=== PATIENT | male | born 1990 | race Hispanic/Latino ===

== ENCOUNTER 2019-09-09 18:48 | Emergency (ER) | payer SELFPAY | END 2019-09-09 19:51 | disposition home or self-care (01) | LOC: ERS 18:48 | DX: J11.1 Influenza due to unidentified influenza virus with other respiratory manifestations (principal) | CPT/HCPCS: 99283 ==

== ENCOUNTER 2022-08-15 05:35 | Emergency (ER) | payer SELFPAY ==
[2022-08-15] MEDS ORDERED: Ondansetron PF 4 MG/2 ML Vial ONE (06:08)
[2022-08-15 06:25] LABS: #Basophils 0.1 thou/uL (0.0-0.2); #Eosinphils 0.2 thou/uL (0.0-0.7); #Lymphocytes 1.4 thou/uL (1.20-3.40); #Monocytes 0.4 thou/uL (0.11-0.59); #Neutrophils 6.6 thou/uL (1.40-6.50); %Basophils 0.9 % (0.0-1.0); %Eosinophils 1.8 % (0.0-10.0); %Lymphocytes 16.6 % (21.0-51.0); %Monocytes 4.2 % (0.0-10.0); %Neutrophils 76.5 % (42.0-75.0); Hemoglobin 15.5 g/dL (14.0-18.0); Mean Corpuscular HGB CONC 34.9 g/dL (32.0-36.0); Mean Corpuscular Volume 85.9 fl (78.0-98.0); Mean Platelet Volume 6.6 fL (7.4-10.4); Platelet Count 283 thou/uL (130-400); Red Blood Cell (RBC) Count 5.17 mill/uL (4.70-6.10); White Blood Cell (WBC) Count 8.6 thou/uL (4.8-10.8)
[2022-08-15] MEDS ORDERED: Mag-Al 1200 mg/1200 mg/30 ML UDCUP ONE (06:32)
[2022-08-15 07:17] LABS: ALT (SGPT) 27 U/L (8-55); AST (SGOT) 19 U/L (5-34); Albumin 4.6 g/dL (3.5-5.0); Alkaline Phosphatase 62 U/L (40-110); Anion Gap 14 mmol/L (10-20); BUN (Urea Nitrogen) 10 mg/dL (8.9-20.6); Bilirubin, Total 0.7 mg/dL (0.2-1.2); Calc. Creatinine Clearance 0 mL/min (70-130); Calcium 9.4 mg/dL (7.8-10.44); Carbon Dioxide 22 mmol/L (22-29); Chloride 106 mmol/L (98-107); Estimated GFR 109; Glucose 104 mg/dL (70-105); Lipase 51 U/L (8-78); Potassium 4.2 mmol/L (3.5-5.1); Protein, Total 7.6 g/dL (6.0-8.3); Sodium 138 mmol/L (136-145)
== END 2022-08-15 08:27 | disposition home or self-care (01) ==
LOC: ERS 05:35
DX: K80.20 Calculus of gallbladder without cholecystitis without obstruction (principal)
CPT/HCPCS: 76705; 80053; 83690; 85025; 96374; J2405

== ENCOUNTER 2025-07-23 09:27 | Emergency (ER) | payer SELFPAY ==
[2025-07-23 10:18] LABS: #Basophils 0.14 10x3/uL (0.0-0.2); #Eosinophils 0.51 10x3/uL (0.0-0.7); #Monocytes 0.27 10x3/uL (0.11-0.59); #Neutrophils 2.25 10x3/uL (1.40-6.50); %Basophils 2.8 % (0.0-1.0); %Eosinophils 10.3 % (0.0-10.0); %Lymphocytes 35.4 % (21.0-51.0); %Monocytes 5.5 % (0.0-10.0); %Neutrophils 45.6 % (42.0-75.0); Hematocrit 46.2 % (42.0-52.0); Hemoglobin 16.3 g/dL (14.0-18.0); Mean Corpuscular Hemoglobin 28.5 pg (27.0-31.0); Mean Corpuscular Volume 80.8 fL (78.0-98.0); Platelet Count 326 10x3/uL (130-400); Red Blood Cell (RBC) Count 5.72 mill/uL (4.70-6.10); White Blood Cell (WBC) Count 4.94 10x3/uL (4.8-10.8)
[2025-07-23 10:38] LABS: ALT (SGPT) 29 U/L (Less than 45); AST (SGOT) 29 U/L (11-34); Albumin 4.7 g/dL (3.1-4.5); Alkaline Phosphatase 59 U/L (40-110); Anion Gap 14 mmol/L (10-20); BUN (Urea Nitrogen) 8 mg/dL (8.9-20.6); Bilirubin, Total 0.6 mg/dL (0.3-1.2); Calc. Creatinine Clearance 0 mL/min (70-130); Calcium 9.9 mg/dL (7.8-10.44); Carbon Dioxide 21 mmol/L (22-29); Chloride 108 mmol/L (98-107); Globulin 3.4 g/dL (2.4-3.5); Glucose 106 mg/dL (70-105); Potassium 4.1 mmol/L (3.5-5.1); Sodium 139 mmol/L (136-145)
[2025-07-23] MEDS ORDERED: Mag-Al 1200 mg/1200 mg/30 ML UDCUP ONE (11:02)
[2025-07-23] MEDS ORDERED: Lidocaine Viscous Sol 2% 15 ml UD Cup ONE (11:02)
[2025-07-23] MEDS ORDERED: Famotidine 20 MG TAB ONE (11:02)
== END 2025-07-23 13:27 | disposition home or self-care (01) ==
LOC: ERS 09:27
DX: K29.70 Gastritis, unspecified, without bleeding (principal); K80.20 Calculus of gallbladder without cholecystitis without obstruction; B35.6 Tinea cruris
CPT/HCPCS: 71046; 76705; 80053; 83690; 84484; 85025; 93005